=== PATIENT | male | born 2000 ===

== ENCOUNTER 2021-07-14 15:51 | Emergency (ER) | payer SELFPAY | END 2021-07-15 01:55 | disposition home or self-care (01) | LOC: ED 15:51 | DX: S61.411A Laceration without foreign body of right hand, initial encounter (principal); Z53.21 Procedure and treatment not carried out due to patient leaving prior to being seen by health care provider; X58.XXXA Exposure to other specified factors, initial encounter; Y93.89 Activity, other specified; Y92.89 Other specified places as the place of occurrence of the external cause; Y99.8 Other external cause status ==

== ENCOUNTER → 2021-07-14 | Emergency (ER) | payer SELFPAY ==
[2021-07-14 03:09] VITALS: BP 147/98
== END ==
LOC: ED 03:02
DX: T14.8XXA Other injury of unspecified body region, initial encounter (principal); Z53.21 Procedure and treatment not carried out due to patient leaving prior to being seen by health care provider; X58.XXXA Exposure to other specified factors, initial encounter; Y93.89 Activity, other specified; Y92.89 Other specified places as the place of occurrence of the external cause; Y99.8 Other external cause status